=== PATIENT | female | born 1975 | race Caucasian/White ===

== ENCOUNTER 2017-03-18 09:53 | Emergency (ER) | payer SELFPAY ==
[2017-03-18 10:01] VITALS: BP 110/66
--- NOTE | 2017-03-18 11:13 | DR.GENAD ---
HPI - PCP Primary Care Physician: PAULINA OVIEDO - Complaint/Symptoms Chief Complaint:: PT STATES " MY PERIOD STARTED AT 0400 THIS AND I AM CRAMPING REAL BAD , AND I AM ON CONTROL".. SOMETHING IS NOT RIGHT .. Self Treatment fo Chief Complaint: NORCO TIMES 3 - Source History Provided: Patient - Mode of Arrival Mode of Arrival: Ambulatory - Timing Onset of Chief Complaint: 03/17/17 PMH - PMH Past Medical History: Yes Past Medical History: Migraines Past Surgical History: Yes Surgical History: , Other - Family History History of Family Medical Conditions: Yes Family Medical History: Diabetes Mellitus, Cancer, [place], Coronary Artery Disease, Heart Failure - Social History Does patient currently use any type of tobacco product: Yes Have you used tobacco products in the last 12 months: Yes Type of Tobacco Use: Cigarettes How many years tobacco product used: 20 Does any household member use tobacco: No Alcohol Use: None Do you use any recreational Drugs:: No Lives With: Family Lives Where: Home - infectious screening In the last 2 months have you had wt loss of >10#?: NO Have you had fever, night sweats or hemotysis?: No Have you traveled outside the country in the last 6 months?: No Isolation: Standard PE - Vital Signs Vitals: Temperature 98.0 F Pulse Rate 83 Respiratory Rate 22 Blood Pressure [Left Arm] 100/65 Blood Pressure [Right Arm] 98/50 Blood Pressure 110/66 O2 Sat by Pulse Oximetry 100 - Discharge Plan Condition: Stable - Follow ups/Referrals Follow ups/Referrals: NFD,None [Primary Care Provider] - 3 days - Instructions
== END 2017-03-18 10:17 | disposition left against medical advice (07) ==
LOC: ER 10:06
DX: R25.2 Cramp and spasm (principal)
CPT/HCPCS: 99281